=== PATIENT | female | born 1950 | race Two or more races ===

== ENCOUNTER 2016-04-24 20:04 | Inpatient (IN) | payer SELFPAY ==
[~2016-04-24] VITALS: Ht 154.9 cm; Wt 68.0 kg
[2016-04-24 21:18] LABS: Basophils # (auto) 0 uL; Basophils % (auto) 0.3 % (0.0-2.0); Eosinophils # (auto) 0.1 uL; Eosinophils % (auto) 0.7 % (0.0-7.0); Hemoglobin 14.1 g/dL (12.2-16.2); Lymphocytes # (auto) 3.6 uL; Lymphocytes % (auto) 41.3 % (10.0-50.0); Mean Corpuscular Hemoglobin 27.1 pg (28.0-32.0); Mean Corpuscular Hgb Conc. 33.5 g/dL (32.0-36.0); Mean Corpuscular Volume 81.1 fL (80.0-100.0); Mean Platelet Volume 9.6 fL (7.4-10.4); Monocytes # (auto) 0.8 uL; Monocytes % (auto) 9.5 % (0.0-12.0); Neutrophils # (auto) 4.2 uL; Neutrophils % (auto) 48.2 % (37.0-80.0); Platelet Count (auto) 311 10^3/uL (140-450); Red Cell Distribution Width 13.7 % (11.6-16.0); White Blood Cell 8.6 10^3/uL (4.4-10.8)
[2016-04-24 21:20] LABS: INR 0.99 (0.9-1.15); Partial Thromboplastin Time 26.1 sec (22.64-33.71); Prothrombin Time 10.2 sec (9.37-12.3)
[2016-04-24 21:22] LABS: Albumin 3.8 g/dL (3.4-5.0); BUN/Creatinine Ratio 28.8; Calcium 9.7 mg/dL (8.5-10.1); Potassium 3.5 mmol/L (3.5-5.1)
[2016-04-24 21:27] LABS: Bilirubin, Total 0.2 mg/dL (0.2-1.0); Total Protein 7.8 g/dL (6.4-8.2)
[2016-04-25] MEDS ORDERED: ASPirin 81 mg TAB PO ONE (01:15)
[2016-04-25] MEDS ORDERED: NITROGLYCERIN 0.4 MG SL TAB SL ONE (01:15)
[2016-04-25] MEDS ORDERED: SODIUM CHLORIDE 0.9% 1,000 ML IV SCH (06:49)
[2016-04-25] MEDS ORDERED: MORPHINE SULF INJ 2 MG/ML SYRINGE 1ML IV PRN ×2 (07:00)
[2016-04-25] MEDS ORDERED: PROMETHAZINE HCL 25 MG/ML 1ML IV PRN (07:00)
[2016-04-25] MEDS ORDERED: HYDROcodone-ACET 5/325MG TAB PO PRN (07:00)
[2016-04-25] MEDS ORDERED: LORazepam 0.5 MG TAB PO PRN (07:00)
[2016-04-25] MEDS ORDERED: ACETAMINOPHEN 500 MG TAB PO PRN (07:00)
[2016-04-25] MEDS ORDERED: TEMAZEPAM 15 MG CAP PO PRN (07:00)
[2016-04-25] MEDS ORDERED: LACTULOSE 20Gm/30ML SOLN PO PRN (07:00)
[2016-04-25] MEDS ORDERED: NITROGLYCERIN 0.4 MG SL TAB SL PRN (07:00)
[2016-04-25 10:00] VITALS: BP 151/84
[2016-04-25] MEDS ORDERED: METOPROLOL TARTRATE 25 MG TAB PO SCH (10:00)
[2016-04-25] MEDS ORDERED: ASPirin 81 mg TAB PO SCH (10:00)
[2016-04-25] MEDS ORDERED: NITROGLYCERIN 0.2MG/HR TOPICAL PATCH TD SCH (10:00)
[2016-04-25] MEDS ORDERED: ENOXAPARIN SOD 40 MG/0.4 ML SYRINGE SC SCH (10:00)
[2016-04-25] MEDS ORDERED: ATORVASTATIN 20 MG TAB PO SCH (22:00)
== END 2016-04-25 10:40 | disposition left against medical advice (07) | DRG 313 ==
LOC: ER 20:09 → TELE 20:10 → TELE-WESTW 04-25 10:08
PROVIDERS: ADMIT Internal Medicine; ATTEND Internal Medicine
DX: R07.9 Chest pain, unspecified (principal); R73.9 Hyperglycemia, unspecified; I10 Essential (primary) hypertension; Z90.49 Acquired absence of other specified parts of digestive tract
CPT/HCPCS: 36415; 71020; 80053; 82550; 83735; 84484; 85025; 85379; 85610; 85652; 85730; 86141; 93005; 94761